=== PATIENT | male | born 1980 | race Caucasian/White ===

== ENCOUNTER 2016-06-03 12:50 | Emergency (ER) | payer OTHER ==
[~2016-06-03] VITALS: Ht 185.4 cm; Wt 145.0 kg
[~2016-06-03 12:50] MED LIST: AMIT10TA6 PO; LEXA20TA PO; LISI10TA3 PO; PROT40TA PO; ZOFR8TAB4 SL
[2016-06-03 12:56] VITALS: BP 133/89; PULSE 104; RESP 20; TEMP 97.8; O2SAT 97
--- NOTE | 2016-06-03 12:59 | PD ---
Physical Exam Time Seen by Provider: 12:57 Narrative Patient presents for injured left third finger 4 days ago at work when door slammed onto his finger. States there is swelling with bruising and throbbing pain at PIP with decreased range of motion. He has been applying ice and taking ibuprofen with minimal improvement of symptoms. Denies any other complaints. VSS. Patient waiting for room assignment. Data Data Last Documented VS Vital Signs Date Time Temp Pulse Resp B/P Pulse Ox O2 Delivery O2 Flow Rate FiO2 06/03/16 12:56 97.8 104 20 133/89 97 Room Air MDM Supervised Visit with KATHARINE: Silvana Juarez Jun 03, 2016 12:59
--- NOTE | 2016-06-03 14:22 | PD ---
HPI Chief Complaint: Injury Time Seen by Provider: 14:22 Travel History International Travel<30 days: No Contact w/Intl Traveler<30days: No Traveled to known affect area: No History of Present Illness HPI 35 year old right handed male presents to the ED for evaluation of L 3rd finger injury sustained four days ago while at work when a door closed into it; jamming the distal aspect. Pt has had a finger splint in place but has been experiencing discomfort, limited mobility, and noticed swelling and bruising develop. Denies any alterations in sensation. No other symptoms to report. PFSH Past Medical History Asthma: Yes Blood Disorders: No Depression: Yes Heart Rhythm Problems: No Cancer: No Cardiac Catheterization: No Cardiovascular Problems: Yes (HTN) High Cholesterol: No Chest Pain: No Congestive Heart Failure: No COPD: No Diabetes: No Diminished Hearing: No Endocrine: No Gastrointestinal Disorders: Yes (GERD) GERD: Yes Genitourinary: No Hepatitis: No Hiatal Hernia: Yes Hypertension: Yes Immune Disorder: No Implanted Vascular Access Dvce: Yes Musculoskeletal: No Neurologic: No Psychiatric: No Reproductive: No Respiratory: Yes (ASTHMA) Immunizations Current: Yes Sleep Apnea: No Past Surgical History Abdominal Surgery: Yes (hernia) Body Medical Devices: UMBILICAL REPAIR-MESH Cardiac Surgery: No Coronary Artery Bypass Graft: No Ear Surgery: No Eye Surgery: No Genitourinary Surgery: No Gynecologic Surgery: No Thoracic Surgery: No Other Surgery: Yes (HERNIA REPAIT) Social History Alcohol Use: Yes (OCC) Tobacco Use: No Substance Use: No Allergies-Medications (Allergen,Severity, Reaction): Coded Allergies: No Known Allergies (Verified , 03/04/16) Reported Meds & Prescriptions Reported Meds & Active Scripts Active Reported Protonix (Pantoprazole Sodium) 40 Mg Tab 40 Mg PO DAILY Lisinopril 10 Mg Tab 10 Mg PO DAILY Amitriptyline (Amitriptyline HCl) 10 Mg Tab 10 Mg PO HS Lexapro (Escitalopram Oxalate) 20 Mg Tab 20 Mg PO DAILY Review of Systems Except as stated in HPI: all other systems reviewed are Neg Physical Exam Narrative GENERAL: Well nourished male pt in no acute distress SKIN: Warm and dry. Ecchymosis along the lateral and medial aspects of the L 3rd digit PIP joint; mild edema. HEAD: Normocephalic. EYES: No scleral icterus. No injection or drainage. NECK: Supple, trachea midline. No JVD or lymphadenopathy. MUSCULOSKELETAL: No cyanosis. Mild edema of the L 3rd digit; limited flexion; pt can fully extend the affected digit. Sensation intact distal affected digit. Data Data Last Documented VS Vital Signs Date Time Temp Pulse Resp B/P Pulse Ox O2 Delivery O2 Flow Rate FiO2 06/03/16 12:56 97.8 104 20 133/89 97 Room Air Orders Finger ([id number]) (06/03/16 13:00) MDM Medical Decision Making Medical Screen Exam Complete: Yes Emergency Medical Condition: Yes Medical Record Reviewed: Yes Differential Diagnosis Contusion versus fracture versus dislocation Narrative Course 35-year-old male presents to emergency room for evaluation a left third digit injury. X-ray imaging is without acute bony abnormality. Patient is placed in his splint for comfort and support. Advised to wear this for additional support and to follow-up with primary care provider. He is instructed to return with any acutely worsening of symptoms. Diagnosis Primary Impression: Jammed interphalangeal joint of finger of left hand Qualified Code: S69.92XA - Jammed interphalangeal joint of finger of left hand , initial encounter Referrals: Primary Care Physician Patient Instructions: General Instructions, Jammed Finger (ED) Additional Instructions: Ice to the affected area Continue to wear brace for support follow-up with your primary care provider Tylenol and/or ibuprofen as directed on package as needed for pain Return immediately with any acute worsening of symptoms Med/Other Pt SpecificInfo: No Change to Meds Disposition: 01 DISCHARGE HOME Condition: Stable Mandy Knapp Jun 03, 2016 14:22
--- NOTE | 2016-06-03 15:00 | RADRPT ---
EXAM DATE/TIME: 06/03/2016 13:44 [facility] COMPARISON: No previous studies available for comparison. INDICATIONS : Pain after getting left 3rd digit caught in door. MEDICAL HISTORY : None. SURGICAL HISTORY : None. ENCOUNTER: Initial ACUITY: 3 days PAIN SCORE: 3/10 LOCATION: Left 3rd digit. FINDINGS: Examination of the third digit of the left hand demonstrates no evidence of fracture or dislocation. No radiopaque foreign bodies are seen. The soft tissues are intact. CONCLUSION: 1. There is no evidence of acute fracture. 8 Pelon Cage MD on June 03, 2016 at 14:58 Board Certified Radiologist. This report was verified electronically.
== END 2016-06-03 15:38 | disposition home or self-care (01) ==
LOC: NEPB 12:50
DX: S69.82XA Other specified injuries of left wrist, hand and finger(s), initial encounter (principal); W23.0XXA Caught, crushed, jammed, or pinched between moving objects, initial encounter
CPT/HCPCS: 73140; 99283

== ENCOUNTER 2016-07-02 14:56 | Emergency (ER) | payer OTHER ==
[~2016-07-02] VITALS: Ht 185.4 cm; Wt 146.1 kg
[~2016-07-02 14:56] MED LIST changes: -ZOFR8TAB4 SL
[2016-07-02 15:09] VITALS: PULSE 110; RESP 18; TEMP 98.1; O2SAT 98
[2016-07-02] MEDS ORDERED: VENTAER INH (15:20)
[2016-07-02] MEDS ORDERED: FLUT1INH INH (15:20)
--- NOTE | 2016-07-02 15:27 | PD ---
HPI Chief Complaint: Back/ Neck Pain or Injury Time Seen by Provider: 15:21 Travel History International Travel<30 days: No Contact w/Intl Traveler<30days: No Traveled to known affect area: No History of Present Illness HPI 35-year-old male that presents to the ED for evaluation of right-sided back pain the wrist on the right leg. Per patient she's had this since this morning. Per patient before he went to work he been down and felt pain in his right back. Per patient she came to work and he needed to work doing some heavy lifting as well and unfortunate the pain got severe to the point that he decided to leave early from work. Per patient he was on his way home when the pain got more severe he realized that he couldn't really use his right foot secondary to the pain so he decided to come here. Per patient the pain is severe 8 out of 10. He does have a history of pain like this in the past. Per patient usually follows with a chiropractor. He states that his been trying to alleviate it at rest but no success. Per patient he was doing some heavy lifting at work today and she believes this also aggravated. He denies any numbness, tingling, weakness. No bowel movement or urinary symptoms. He denies any chest pain or shortness of breath. Per patient the pain starts in the lower back and then moves down the right leg. Per patient she has never had any surgeries to the back. He does have a history of diabetes in the past. No allergies to medication. He has not taken anything for this. PFSH Past Medical History Asthma: Yes Blood Disorders: No Depression: Yes Heart Rhythm Problems: No Cancer: No Cardiac Catheterization: No Cardiovascular Problems: Yes (HTN) High Cholesterol: No Chest Pain: No Congestive Heart Failure: No COPD: No Diabetes: No Diminished Hearing: No Endocrine: No Gastrointestinal Disorders: Yes (GERD) GERD: Yes Genitourinary: No Hepatitis: No Hiatal Hernia: Yes Heparin Induced Thrombocytopen: No Hypertension: Yes Immune Disorder: No Implanted Vascular Access Dvce: Yes Musculoskeletal: No Neurologic: No Psychiatric: No Reproductive: No Respiratory: Yes (ASTHMA) Immunizations Current: Yes Sleep Apnea: No Tetanus Vaccination: Unknown Past Surgical History Abdominal Surgery: Yes (hernia) Body Medical Devices: UMBILICAL REPAIR-MESH Cardiac Surgery: No Coronary Artery Bypass Graft: No Ear Surgery: No Eye Surgery: No Genitourinary Surgery: No Gynecologic Surgery: No Neurologic Surgery: No Thoracic Surgery: No Other Surgery: Yes (HERNIA REPAIT) Family History Family Myocardial Infarction: No Social History Alcohol Use: Yes (OCC) Tobacco Use: No Substance Use: No Allergies-Medications (Allergen,Severity, Reaction): Coded Allergies: No Known Allergies (Verified , 07/02/16) Reported Meds & Prescriptions Reported Meds & Active Scripts Active Lortab (Hydrocodone-Acetaminophen) 5-325 Mg Tab 1 Tab PO Q6H PRN Robaxin (Methocarbamol) 500 Mg Tab 500 Mg PO QID Diclofenac Sodium DR (Diclofenac Sodium) 75 Mg Tabdr 75 Mg PO BID PRN Reported Ventolin Hfa 18 GM Inh (Albuterol Sulfate) 90 Mcg/Act Aer 1 Puff INH Q4H PRN Breo Ellipta Inh (Fluticasone/Vilanterol) 100-25 Mcg/Act Inh 1 Puff INH DAILY Use daily at the same time. Protonix (Pantoprazole Sodium) 40 Mg Tab 40 Mg PO DAILY Lisinopril 10 Mg Tab 10 Mg PO DAILY Amitriptyline (Amitriptyline HCl) 10 Mg Tab 10 Mg PO HS Lexapro (Escitalopram Oxalate) 20 Mg Tab 20 Mg PO DAILY Review of Systems Except as stated in HPI: all other systems reviewed are Neg Physical Exam Narrative GENERAL: SKIN: Warm and dry. HEAD: Atraumatic. Normocephalic. EYES: Pupils equal and round. No scleral icterus. No injection or drainage. ENT: No nasal bleeding or discharge. Mucous membranes pink and moist. Tongue is midline. No uvula deviation. NECK: Trachea midline. No JVD. CARDIOVASCULAR: Regular rate and rhythm. No murmurs, S3, S4. RESPIRATORY: No accessory muscle use. Clear to auscultation. Breath sounds equal bilaterally. GASTROINTESTINAL: Abdomen soft, non-tender, nondistended. Hepatic and splenic margins not palpable. MUSCULOSKELETAL: Extremities without clubbing, cyanosis, or edema. No obvious deformities. Patient has reproducible pain on the lumbar spine noticeable with movement. Bending makes the pain worse. Patient does have some limping. Straight leg test negative bilaterally. 2+ pulses bilaterally in the lower extremities. Neurologically intact in the lower extremities. No thoracic or cervical spine tenderness to palpation. No obvious deformity on the lumbar spine. NEUROLOGICAL: Awake and alert. No obvious cranial nerve deficits. Motor grossly within normal limits. Five out of 5 muscle strength in the arms and legs. Normal speech. PSYCHIATRIC: Appropriate mood and affect; insight and judgment normal. Data Data Last Documented VS Vital Signs Date Time Temp Pulse Resp B/P Pulse Ox O2 Delivery O2 Flow Rate FiO2 07/02/16 15:09 98.1 110 18 98 Orders Ketorolac Inj (Toradol Inj) (07/02/16 15:30) Orphenadrine Inj (Norflex Inj) (07/02/16 15:30) Ct Lumb Spine W/O Contrast (07/02/16 ) Hydromorphone Pf Inj (Dilaudid Pf Inj) (07/02/16 16:30) Ondansetron Inj (Zofran Inj) (07/02/16 16:30) MDM Medical Decision Making Medical Screen Exam Complete: Yes Emergency Medical Condition: Yes Medical Record Reviewed: Yes Interpretation(s) CT of the lumbar spine showed small impinchment at S1 Differential Diagnosis Sciatic Versus muscle strain versus muscle spasm versus herniated disc Narrative Course 35-year-old male that presents to the ED for evaluation of right-sided lower back pain. Patient was properly examined and was found to have signs and symptoms consistent with appears to be muscular skeletal pain. At this time I recommend pain medications and CT scan to rule out any sign of acute disease like herniated disc or compression fracture. The second one appears to be less likely. Patient is agreement with this plan. imaging showed small impingement at the S1 root but no sign of acute disease. Patient was reassessed and still had some discomfort though he does state that he feels that the pain has eased somewhat. Patient will be given 1 more dose of IM pain medication. Pain improved. he is neurovascularly intact. Told of CT results and need for rest and follow up. Patient will contact a ride home. Patient will be sent home with prescriptions for Lortab, diclofenac sodium and Robaxin. Told to use as needed. Ice or warm compresses. Given note for work. See ED worsening symptoms. Follow up with PCP. Diagnosis Primary Impression: Lumbar strain Qualified Code: S39.012A - Lumbar strain, initial encounter Additional Impression: Radiculopathy of lumbar region Patient Instructions: General Instructions Departure Forms: Tests/Procedures, Work Release Enter return to work date: July 05, 2016 Additional Instructions: Take medications as prescribed. Follow-up with PCP. See ED for any worsening symptoms. Do not drink or drive while taking pain medication. Apply ice or heat as needed for pain Med/Other Pt SpecificInfo: Prescription(s) given Scripts Hydrocodone-Acetaminophen (Lortab)5-325 Mg Tab1 Tab PO Q6H PRN (PAIN) #15 TAB Ref 0 Prov:José Norris MD 07/02/16 Methocarbamol (Robaxin)500 Mg [id number] Mg PO QID #20 TAB Ref 0 Prov:José Norris MD 07/02/[address] 75 Mg Tabdr75 Mg PO BID PRN (PAIN SCALE 1 TO 10) #20 TAB Prov:José Norris MD 07/02/16 Disposition: 01 DISCHARGE HOME Condition: Steve Solorio Jul 02, 2016 15:27
[2016-07-02] MEDS ORDERED: ORPHENADRINE INJ 60 MG/2 ML AMP IM ONE (15:30)
[2016-07-02] MEDS ORDERED: KETOROLAC TROMETHAMINE 60 MG/2 ML (IM) VIAL IM ONE (15:30)
[2016-07-02] MEDS ORDERED: HYDR-3533 PO (16:06)
[2016-07-02] MEDS ORDERED: ROBA500T PO (16:06)
[2016-07-02] MEDS ORDERED: DICL75TA PO (16:06)
--- NOTE | 2016-07-02 16:23 | RADHPO ---
EXAM DATE/TIME: 07/02/2016 15:46 [facility] COMPARISON: No previous studies available for comparison. INDICATIONS : Lower back and right leg pain since yesterday. RADIATION DOSE: 40.33 CTDIvol (mGy) MEDICAL HISTORY : None SURGICAL HISTORY : None. ENCOUNTER: Initial ACUITY: 1 day PAIN SCALE: 8/10 LOCATION: Bilateral lower back TECHNIQUE: Volumetric scanning of the lumbar spine was performed. Multiplanar reconstructions in the sagittal, coronal and oblique axial planes were performed. Using automated exposure control and adjustment of the mA and/or kV according to patient size, radiation dose was kept as low as reasonably achievable t o obtain optimal diagnostic quality images. FINDINGS: No evidence of subluxation. No definite fracture is seen for technique. T12-L1: There is no evidence for any significant compromise to the thecal sac, or the exiting nerve roots. N o appreciable thecal sac stenosis is seen. The neural foramina and lateral recess appear patent bila terally. L1-L2: There is no evidence for any significant compromise to the thecal sac, or the exiting nerve roots. N o appreciable thecal sac stenosis is seen. The neural foramina and lateral recess appear patent bila terally. L2-L3: There is no evidence for any significant compromise to the thecal sac, or the exiting nerve roots. N o appreciable thecal sac stenosis is seen. The neural foramina and lateral recess appear patent bila terally. L3-L4: There is no evidence for any significant compromise to the thecal sac, or the exiting nerve roots. N o appreciable thecal sac stenosis is seen. The neural foramina and lateral recess appear patent bila terally. L4-L5: There is no evidence for any significant compromise to the thecal sac, or the exiting nerve roots. N o appreciable thecal sac stenosis is seen. The neural foramina and lateral recess appear patent bila terally. L5-S1: Slight central and towards the right bulging disc and slight protrusion is present slightly impinging the exiting S1 nerve root. No significant thecal sac stenosis is seen. CONCLUSION: Slight impingement on the exiting S1 nerve root on the right at L5-S1 level. Kenneth Ayala MD on July 02, 2016 at 16:18 Board Certified Radiologist. This report was verified electronically.
[2016-07-02] MEDS ORDERED: HYDROmorphone HCL PF 1 MG/ML VIAL IM ONE (16:30)
[2016-07-02] MEDS ORDERED: ONDANSETRON HCL 4 MG/2 ML VIAL IM ONE (16:30)
== END 2016-07-02 17:16 | disposition home or self-care (01) ==
LOC: PHEFT 14:56
DX: S39.012A Strain of muscle, fascia and tendon of lower back, initial encounter (principal); M54.16 Radiculopathy, lumbar region; X50.9XXA Other and unspecified overexertion or strenuous movements or postures, initial encounter
CPT/HCPCS: 72131; 96372; 99283; J1170; J1885; J2360; J2405

== ENCOUNTER 2016-08-14 13:41 | Emergency (ER) | payer OTHER ==
[~2016-08-14] VITALS: Ht 182.9 cm; Wt 144.0 kg
[~2016-08-14 13:41] MED LIST changes: +DICL75TA PO; +FLUT1INH INH; +HYDR-3533 PO; +ROBA500T PO; +VENTAER INH
[2016-08-14 13:46] VITALS: BP 117/79; PULSE 98; RESP 28; TEMP 97.9; O2SAT 97
[2016-08-14 13:57] VITALS: BP 149/96; PULSE 94; RESP 22; TEMP 98.3; O2SAT 100
--- NOTE | 2016-08-14 14:10 | PD ---
HPI Chief Complaint: Respiratory Symptoms Time Seen by Provider: 14:05 Travel History International Travel<30 days: No Contact w/Intl Traveler<30days: No Traveled to known affect area: No History of Present Illness HPI Patient presents with complaints of cough and subjective fever for approximately 2 weeks. He did take some Cipro he had leftover without resolution. Recently diagnosed with asthma. Compliant with duonebs. Denies any nausea vomiting or diarrhea. No new rashes. No tobacco exposure. No sick contacts. PFSH Past Medical History Asthma: Yes Blood Disorders: No Depression: Yes Heart Rhythm Problems: No Cancer: No Cardiac Catheterization: No Cardiovascular Problems: Yes (HTN) High Cholesterol: No Chest Pain: No Congestive Heart Failure: No COPD: No Diabetes: No Diminished Hearing: No Endocrine: No Gastrointestinal Disorders: Yes (GERD) GERD: Yes Genitourinary: No Hepatitis: No Hiatal Hernia: Yes Heparin Induced Thrombocytopen: No Hypertension: Yes Immune Disorder: No Implanted Vascular Access Dvce: Yes Musculoskeletal: No Neurologic: No Psychiatric: No Reproductive: No Respiratory: Yes (ASTHMA) Immunizations Current: Yes Sleep Apnea: No Tetanus Vaccination: Unknown Past Surgical History Abdominal Surgery: Yes (hernia) Body Medical Devices: UMBILICAL REPAIR-MESH Cardiac Surgery: No Coronary Artery Bypass Graft: No Ear Surgery: No Eye Surgery: No Genitourinary Surgery: No Gynecologic Surgery: No Neurologic Surgery: No Thoracic Surgery: No Other Surgery: Yes (HERNIA REPAIT) Family History Family Myocardial Infarction: No Social History Alcohol Use: Yes (OCC) Tobacco Use: No Substance Use: No Allergies-Medications (Allergen,Severity, Reaction): Coded Allergies: No Known Allergies (Verified , 08/14/16) Reported Meds & Prescriptions Reported Meds & Active Scripts Active Lortab (Hydrocodone-Acetaminophen) 5-325 Mg Tab 1 Tab PO Q6H PRN Robaxin (Methocarbamol) 500 Mg Tab 500 Mg PO QID Diclofenac Sodium DR (Diclofenac Sodium) 75 Mg Tabdr 75 Mg PO BID PRN Reported Ventolin Hfa 18 GM Inh (Albuterol Sulfate) 90 Mcg/Act Aer 1 Puff INH Q4H PRN Breo Ellipta Inh (Fluticasone/Vilanterol) 100-25 Mcg/Act Inh 1 Puff INH DAILY Use daily at the same time. Protonix (Pantoprazole Sodium) 40 Mg Tab 40 Mg PO DAILY Lisinopril 10 Mg Tab 10 Mg PO DAILY Amitriptyline (Amitriptyline HCl) 10 Mg Tab 10 Mg PO HS Lexapro (Escitalopram Oxalate) 20 Mg Tab 20 Mg PO DAILY Review of Systems General / Constitutional: No: Fever Eyes: No: Visual changes HENT: No: Headaches Cardiovascular: No: Chest Pain or Discomfort Respiratory: Positive: Cough, Shortness of Breath Gastrointestinal: No: Abdominal Pain Genitourinary: No: Dysuria Musculoskeletal: No: Pain Skin: No Rash Neurologic: No: Weakness Psychiatric: No: Depression Endocrine: No: Polydipsia Hematologic/Lymphatic: No: Easy Bruising Physical Exam Narrative GENERAL: Well-nourished, well-developed patient. SKIN: Focused skin assessment warm/dry. HEAD: Normocephalic. EYES: No scleral icterus. No injection or drainage. NECK: Supple, trachea midline. No JVD or lymphadenopathy. CARDIOVASCULAR: Regular rate and rhythm without murmurs, gallops, or rubs. RESPIRATORY: Coarse bilateral bases no end expiratory wheeze. No accessory muscle use. GASTROINTESTINAL: Abdomen soft, non-tender, nondistended. MUSCULOSKELETAL: No cyanosis, or edema. BACK: Nontender without obvious deformity. No CVA tenderness. Data Data Last Documented VS Vital Signs Date Time Temp Pulse Resp B/P Pulse Ox O2 Delivery O2 Flow Rate FiO2 08/14/16 15:21 94 20 144/59 95 Nasal Cannula 2 08/14/16 13:57 98.3 Orders Complete Blood Count With Diff (08/14/16 14:05) Comprehensive Metabolic Panel (08/14/16 14:05) D-Dimer (08/14/16 14:05) Influenzae A/B Antigen (08/14/16 14:05) Blood Culture (08/14/16 14:05) Iv Access Insert/Monitor (08/14/16 14:05) Ecg Monitoring (08/14/16 14:05) Oximetry (08/14/16 14:05) Oxygen Administration (08/14/16 14:05) Chest, Single Ap (08/14/16 14:05) Sodium Chloride 0.9% Flush (Ns Flush) (08/14/16 14:15) Methylprednisolone So Succ Inj (Solumedr (08/14/16 14:15) Azithromycin Inj (Zithromax Inj) (08/14/16 14:15) Ceftriaxone Inj (Rocephin Inj) (08/14/16 14:15) Lactic Acid Sepsis Protocol (08/14/16 14:16) Labs Laboratory Tests Test 08/14/16 08/14/16 14:05 14:10 White Blood Count 9.2 TH/MM3 Red Blood Count 5.28 MIL/MM3 Hemoglobin 13.8 GM/DL Hematocrit 41.7 % Mean Corpuscular Volume 79.0 FL Mean Corpuscular Hemoglobin 26.2 PG Mean Corpuscular Hemoglobin 33.1 % Concent Red Cell Distribution Width 13.1 % Platelet Count 228 TH/MM3 Mean Platelet Volume 8.2 FL Neutrophils (%) (Auto) 58.3 % Lymphocytes (%) (Auto) 29.0 % Monocytes (%) (Auto) 5.1 % Eosinophils (%) (Auto) 6.0 % Basophils (%) (Auto) 1.6 % Neutrophils # (Auto) 5.3 TH/MM3 Lymphocytes # (Auto) 2.7 TH/MM3 Monocytes # (Auto) 0.5 TH/MM3 Eosinophils # (Auto) 0.6 TH/MM3 Basophils # (Auto) 0.1 TH/MM3 CBC Comment DIFF FINAL Differential Comment D-Dimer Quantitative (PE/DVT) LESS THAN 0.19 MG/L FEU Sodium Level 142 MEQ/L Potassium Level 3.5 MEQ/L Chloride Level 105 MEQ/L Carbon Dioxide Level 28.7 MEQ/L Anion Gap 8 MEQ/L Blood Urea Nitrogen 13 MG/DL Creatinine 1.20 MG/DL Estimat Glomerular Filtration 69 ML/MIN Rate Random Glucose 96 MG/DL Calcium Level 8.3 MG/DL Total Bilirubin 0.6 MG/DL Aspartate Amino Transf 16 U/L (AST/SGOT) Alanine Aminotransferase 25 U/L (ALT/SGPT) Alkaline Phosphatase 75 U/L Total Protein 7.1 GM/DL Albumin 3.6 GM/DL Lactic Acid Level 2.2 mmol/L [facility] Medical Decision Making Medical Screen Exam Complete: Yes Emergency Medical Condition: Yes Differential Diagnosis Pneumonia, bronchitis, pneumonitis, pharyngitis, influenza Narrative Course Last 72 hours Impressions Chest X-Ray 08/14/16 [id number] Signed Impressions: Service Date/Time: Sunday, August 14, 2016 14:14 - CONCLUSION: No evidence of acute cardiopulmonary disease. Sebastian Romero MD Assessment and plan discussed with patient and at bedside. Diagnosis Primary Impression: Asthma exacerbation Additional Impression: Cough Patient Instructions: General Instructions Additional Instructions: Rest fluids and Motrin, antibiotic and cough suppressant as prescribed. Follow- up with PCP. Return to emergency with any new onset of symptoms. Continue DuoNeb's Med/Other Pt SpecificInfo: Prescription(s) given Scripts Prednisolone 5 mg Dose Pack (21 tabs) (Millipred 5 mg Dose Pack (21 tabs))5 Mg Pak10 Mg PO DAILY #20 TAB Prov:Cristo Lanier MD 08/14/16 Guaifenesin-Codeine Liq (Cheratussin AC Liq)100-10 Mg/5 Ml Syrp10 Ml PO Q4H PRN (COUGH AND COLD SYMPTOMS) #120 ML Ref 0 Do not exceed 6 doses/24 hrs. Prov:Cristo Lanier MD 08/14/16 Doxycycline Hyclate 100 Mg [id number] Mg PO BID #20 CAP Ref 0 Prov:Cristo Lanier MD 08/14/16 Disposition: 01 DISCHARGE HOME Condition: Good Cristo Lanier MD Aug 14, 2016 14:10
[2016-08-14] MEDS ORDERED: AZITHROMYCIN INJ 500 MG in SODIUM CHLOR 0.9% 250 ML INJ 250 ML IV ONE (14:15)
[2016-08-14] MEDS ORDERED: SODIUM CHLORIDE 0.9% FLUSH 10 ML FLUSH IVF PRN (14:15)
[2016-08-14] MEDS ORDERED: cefTRIAXone INJ 1,000 MG in SODIUM CHLORIDE 0.9% INJ 100 ML IV ONE (14:15)
[2016-08-14] MEDS ORDERED: methylPREDNISolone SOD SUCC 125 MG/2 ML VIAL IVP ONE (14:15)
[2016-08-14 14:18] VITALS: RESP 22; O2SAT 100
--- NOTE | 2016-08-14 14:23 | RADHPO ---
EXAM DATE/TIME: 08/14/2016 14:14 [facility] COMPARISON: CHEST SINGLE AP, May 05, 2015, 9:13. INDICATIONS : Short of breath, cough MEDICAL HISTORY : None. SURGICAL HISTORY : None. ENCOUNTER: Initial ACUITY: 2 weeks PAIN SCORE: 0/10 LOCATION: Bilateral chest FINDINGS: A single view of the chest demonstrates the lungs to be symmetrically aerated without evidence of mas s, infiltrate or effusion. The cardiomediastinal contours are unremarkable. Osseous structures are intact. CONCLUSION: No evidence of acute cardiopulmonary disease. Sebastian Romero MD on August 14, 2016 at 14:21 Board Certified Radiologist. This report was verified electronically.
[2016-08-14 14:31] LABS: CHLORIDE 105 MEQ/L (98-107); POTASSIUM 3.5 MEQ/L (3.5-5.1); SODIUM (NA) 142 MEQ/L (136-145)
[2016-08-14 14:33] LABS: AUTOMATED NEUTROPHIL # 5.3 TH/MM3 (1.8-7.7); BASOPHIL # 0.1 TH/MM3 (0-0.2); BASOPHIL % 1.6 % (0.0-2.0); EOSINOPHIL # 0.6 TH/MM3 (0-0.4); HEMATOCRIT 41.7 % (39.0-51.0); HEMO FLAGS DIFF FINAL; LYMPHOCYTE # 2.7 TH/MM3 (1.0-4.8); MEAN CORPUSCULAR HEMOGLOBIN 26.2 PG (27.0-34.0); MEAN CORPUSCULAR HGB CONC 33.1 % (32.0-36.0); MONO % 5.1 % (0.0-8.0); NEUT % 58.3 % (16.0-70.0); PLATELET COUNT 228 TH/MM3 (150-450); RED BLOOD COUNT 5.28 MIL/MM3 (4.50-5.90); RED CELL DISTRIBUTION WIDTH 13.1 % (11.6-17.2); WHITE BLOOD COUNT 9.2 TH/MM3 (4.0-11.0)
[2016-08-14 14:36] LABS: ANION GAP 8 MEQ/L (5-15); BICARBONATE 28.7 MEQ/L (21.0-32.0); BLOOD UREA NITROGEN 13 MG/DL (7-18)
[2016-08-14 14:52] LABS: AST (GOT) 16 U/L (15-37)
[2016-08-14 14:53] LABS: ALT (GPT) 25 U/L (12-78); GLOMERULAR FILTRATION RATE 69 ML/MIN (>89)
[2016-08-14 14:54] LABS: TOTAL BILIRUBIN ADULT 0.6 MG/DL (0.2-1.0)
[2016-08-14 14:55] LABS: ALKALINE PHOSPHATASE 75 U/L (45-117)
[2016-08-14 15:21] VITALS: BP 144/59; PULSE 94; RESP 20; O2SAT 95
[2016-08-14] MEDS ORDERED: DOXY100C PO (15:40)
[2016-08-14] MEDS ORDERED: MILL5PAK PO (15:40)
[2016-08-14] MEDS ORDERED: CHERSYP2 PO (15:40)
[2016-08-14] MEDS ORDERED: ZOFR4TAB PO (15:49)
[2016-08-14] MEDS ORDERED: ONDANSETRON HCL 4 MG/2 ML VIAL IV PUSH ONE (16:00)
[2016-08-14 16:23] LABS: LACTIC ACID GHOST NOT REPORTABLE
[2016-08-14 16:31] VITALS: BP 103/69
== END 2016-08-14 16:42 | disposition home or self-care (01) ==
LOC: PHED 13:41
DX: J45.901 Unspecified asthma with (acute) exacerbation (principal); R05 Cough; I10 Essential (primary) hypertension; K21.9 Gastro-esophageal reflux disease without esophagitis; R06.02 Shortness of breath; R11.0 Nausea
CPT/HCPCS: 71010; 80053; 83605; 85025; 85379; 87040; 87804; 96365; 96367; 96375; 99284; J0456; J0696; J2405; J2930; J7050

== ENCOUNTER → 2016-08-31 | Day surgery (SDC) | payer OTHER ==
[~2016-08-31] MED LIST changes: +BUPIVACAINE HCL PF 0.5% 10 ML VIAL ONE; +CHERSYP2 PO; +DOXY100C PO; +GENTAMICIN SULFATE 80 MG/2 ML VIAL ONE; +LACTATED RINGER'S 1000 ML INJ 1,000 ML ONE; +LIDOCAINE HCL 1% 50 ML VIAL ONE; +MIDAZOLAM HCL 2 MG/2 ML VIAL ONE; +MILL5PAK PO; +NEOMYCIN/POLYMYXIN/BACITRACIN OINT 15 GM TUBE ONE; +ONDANSETRON HCL 4 MG/2 ML VIAL IV PUSH ONE; +PROPOFOL 200 MG/20 ML AMP IV ONE; +ZOFR4TAB PO
--- NOTE | 2016-08-31 09:31 | TN ---
cc: IRON PAIZ M.D. DATE OF SURGERY 08/31/2016 PREOPERATIVE DIAGNOSIS Desired contraception (ICD-10 code Z30.0) POSTOPERATIVE DIAGNOSIS Desired contraception (ICD-10 code Z30.0) PROCEDURE Bilateral partial vasectomy (CPT code 19343). INDICATION Mr. Gorman is a 36-year-old gentleman. He has two children and no longer desires further children. He is requesting surgical sterilization via bilateral vasectomy. FINDINGS Testicles descended bilaterally without mass or tenderness. No inguinal hernias or lymphadenopathy. The vas are palpable, but difficult to palpate bilaterally. PROCEDURE NOTE The procedure, as well as the risks and benefits were explained to the patient. Informed consent was obtained. The patient was taken to the major operative theater, placed in the supine position. The patient was identified, as well as the operative site. A universal time-out was performed in standard fashion. At this time, total intravenous anesthesia was administered. After adequate anesthetic, he was placed in the low dorsolithotomy position, prepped and draped in the usual sterile fashion. At this time, the right vas was grasped between the thumb and forefinger and 1% lidocaine and 0.25% Marcaine without epinephrine was injected. At this time, an 11 blade scalpel was used to make a small incision in the midline in the median raphe over the area where the right vas had been grasped with ring forceps and then the sheath was dissected out. The vas was from the sheath and median titanium clips were then applied to both sides and a small portion of the vas was resected and the lumen of the vas was then cauterized on both sides with pinpoint cautery. After confirming hemostasis, the right vas was then placed back into the scrotum and the same procedure was performed on the left side. The left vas was grasped with the forefinger and thumb and then 1% lidocaine without epinephrine was placed and the ring forceps was able to grasp it through the previously made incision in the midline and then it was dissected from the sheath, clipped, resected and the lumen again fulgurated on each side and again hemostasis was confirmed and the vas was dropped back into the scrotum. The single midline small incision was opposed using Allis clips and then Dermabond and Polysporin ointment. The patient tolerated the procedure well, emerged from anesthetic without difficulty and transferred to the recovery room in stable condition to be discharged home when criteria is met. There were no obvious complications. MD HIREN Azul/LIGIA /8:40 AM /9:25 AM
== END | disposition home or self-care (01) ==
LOC: ESDC 06:24
PROVIDERS: ATTEND Urology
DX: Z30.2 Encounter for sterilization (principal)
CPT/HCPCS: 00921; 55250; J2250; J2405; J3010; J7120; J1580

== ENCOUNTER → 2016-11-24 | Outpatient (CLI) | payer OTHER ==
[~2016-11-24] MED LIST changes: -BUPIVACAINE HCL PF 0.5% 10 ML VIAL ONE; -GENTAMICIN SULFATE 80 MG/2 ML VIAL ONE; -LACTATED RINGER'S 1000 ML INJ 1,000 ML ONE; -LIDOCAINE HCL 1% 50 ML VIAL ONE; -MIDAZOLAM HCL 2 MG/2 ML VIAL ONE; -NEOMYCIN/POLYMYXIN/BACITRACIN OINT 15 GM TUBE ONE; -ONDANSETRON HCL 4 MG/2 ML VIAL IV PUSH ONE; -PROPOFOL 200 MG/20 ML AMP IV ONE
[2016-11-24 07:32] LABS: AUTOMATED NEUTROPHIL # 3.9 TH/MM3 (1.8-7.7); BASOPHIL % 0.7 % (0.0-2.0); EOSINOPHIL # 0.3 TH/MM3 (0-0.4); EOSINOPHIL % 3.9 % (0.0-4.0); HEMATOCRIT 44.3 % (39.0-51.0); HEMO FLAGS DIFF FINAL; LYMPH % 29.8 % (9.0-44.0); MEAN CELL VOLUME 80.2 FL (80.0-100.0); MEAN CORPUSCULAR HEMOGLOBIN 26.4 PG (27.0-34.0); MEAN CORPUSCULAR HGB CONC 32.9 % (32.0-36.0); MONO % 7.5 % (0.0-8.0); NEUT % 58.1 % (16.0-70.0); PLATELET COUNT 218 TH/MM3 (150-450); RED BLOOD COUNT 5.53 MIL/MM3 (4.50-5.90); RED CELL DISTRIBUTION WIDTH 13.6 % (11.6-17.2); WHITE BLOOD COUNT 6.6 TH/MM3 (4.0-11.0)
[2016-11-24 08:01] LABS: ALT (GPT) 31 U/L (12-78); ANION GAP 7 MEQ/L (5-15); AST (GOT) 18 U/L (15-37); BICARBONATE 26.2 MEQ/L (21.0-32.0); BLOOD UREA NITROGEN 14 MG/DL (7-18); CHLORIDE 103 MEQ/L (98-107); GLOMERULAR FILTRATION RATE 64 ML/MIN (>89); GLUCOSE,FASTING 87 MG/DL (74-99); POTASSIUM 4.8 MEQ/L (3.5-5.1); SODIUM (NA) 136 MEQ/L (136-145)
[2016-11-24 08:07] LABS: RHEUMATOID FACTOR TRIGGER LESS THAN 10.0 IU/ML (0.0-14.9)
[2016-11-24 08:09] LABS: ALKALINE PHOSPHATASE 78 U/L (45-117); FREE T4 0.97 NG/DL (0.76-1.46); HDL CHOLESTEROL 38.5 MG/DL (40.0-60.0); LDL CHOLESTEROL 125 MG/DL (0-99); TOTAL BILIRUBIN ADULT 0.6 MG/DL (0.2-1.0)
[2016-11-24 08:10] LABS: WESTERGREN SEDIMENTATION RATE 7 mm/hr (0-15)
[2016-11-25 23:54] LABS: THYROGLOB ABS LESS THAN 1 IU/mL (< OR = 1)
== END ==
LOC: CLAB 06:45
PROVIDERS: ATTEND Internal Medicine
DX: M25.521 Pain in right elbow (principal); M25.541 Pain in joints of right hand; I10 Essential (primary) hypertension; Z13.29 Encounter for screening for other suspected endocrine disorder
CPT/HCPCS: 36415; 80053; 80061; 84439; 84443; 85025; 85652; 86038; 86140; 86376; 86430; 86800

== ENCOUNTER 2017-03-08 08:23 | Emergency (ER) | payer OTHER ==
[~2017-03-08] VITALS: Ht 182.9 cm; Wt 140.0 kg
[2017-03-08 08:25] VITALS: BP 170/108; PULSE 111; RESP 20; TEMP 98.8; O2SAT 100
--- NOTE | 2017-03-08 08:49 | PD ---
HPI Chief Complaint: Back/ Neck Pain or Injury Time Seen by Provider: 08:46 Travel History International Travel<30 days: No Contact w/Intl Traveler<30days: No Traveled to known affect area: No History of Present Illness HPI 36-year-old male presents the emergency department status post injury at work. 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 Patient states the pain is 8 out of 10 and spasming. He states it does not really radiate into the lower extremities at this time. It is worse with movement. He has difficulty ambulating secondary to pain. He denies numbness or tingling or weakness in the lower extremities. Patient has no known drug allergies. PFSH Past Medical History Asthma: Yes Blood Disorders: No Depression: Yes Heart Rhythm Problems: No Cancer: No Cardiac Catheterization: No Cardiovascular Problems: Yes (HTN) High Cholesterol: No Chest Pain: No Congestive Heart Failure: No COPD: No Diabetes: No Diminished Hearing: No Endocrine: No Gastrointestinal Disorders: Yes (GERD) GERD: Yes Genitourinary: No Hepatitis: No Hiatal Hernia: Yes Heparin Induced Thrombocytopen: No Hypertension: Yes Immune Disorder: No Implanted Vascular Access Dvce: Yes Musculoskeletal: No Neurologic: No Psychiatric: No Reproductive: No Respiratory: Yes (ASTHMA) Immunizations Current: Yes Sleep Apnea: No Past Surgical History Abdominal Surgery: Yes (hernia) Body Medical Devices: UMBILICAL REPAIR-MESH Cardiac Surgery: No Coronary Artery Bypass Graft: No Ear Surgery: No Eye Surgery: No Genitourinary Surgery: No Gynecologic Surgery: No Neurologic Surgery: No Thoracic Surgery: No Other Surgery: Yes (HERNIA REPAIT) Social History Alcohol Use: Yes (OCC) Tobacco Use: No Substance Use: No Allergies-Medications (Allergen,Severity, Reaction): Coded Allergies: No Known Allergies (Verified Adverse Reaction, Unknown, 03/08/17) Reported Meds & Prescriptions Reported Meds & Active Scripts Active Reported Lisinopril 10 Mg Tab 10 Mg PO DAILY Review of Systems Except as stated in HPI: all other systems reviewed are Neg General / Constitutional: No: Fever Eyes: No: Visual changes HENT: No: Headaches Cardiovascular: No: Chest Pain or Discomfort Respiratory: No: Shortness of Breath Gastrointestinal: No: Abdominal Pain Genitourinary: No: Dysuria Musculoskeletal: Positive: Myalgias, Limited ROM, Pain (see history of present illness) Skin: No Rash Neurologic: No: Weakness Psychiatric: No: Depression Endocrine: No: Polydipsia Hematologic/Lymphatic: No: Easy Bruising Physical Exam Narrative GENERAL: Patient appears in mild to moderate distress. SKIN: Warm and dry. Normal color. Normal turgor. No rash. HEAD: Atraumatic. Normocephalic. EYES: Pupils equal and round. No scleral icterus. No injection or drainage. ENT: No nasal bleeding or discharge. Mucous membranes pink and moist. NECK: Trachea midline. No JVD. CARDIOVASCULAR: Regular rate and rhythm. RESPIRATORY: No accessory muscle use. Clear to auscultation. Breath sounds equal bilaterally. MUSCULOSKELETAL: Extremities without clubbing, cyanosis, or edema. No obvious deformities. Patient has pain with palpation along the lower lumbar strain bilaterally without specific bony tenderness. Straight leg raise pain is not able to be evaluated secondary to patient's discomfort. No obvious weakness is noted in the lower extremities. Neurovascular exam is normal. NEUROLOGICAL: Awake and alert. No obvious cranial nerve deficits. Motor grossly within normal limits. Five out of 5 muscle strength in the arms and legs. Normal speech. PSYCHIATRIC: Appropriate mood and affect; insight and judgment normal. Data Data Last Documented VS Vital Signs Date Time Temp Pulse Resp B/P (MAP) Pulse Ox O2 Delivery O2 Flow Rate FiO2 03/08/17 08:25 98.8 111 20 170/108 (128) 100 Room Air Orders Orders Ketorolac Inj (Toradol Inj) (03/08/17 09:00) Prednisone (Deltasone) (03/08/17 09:00) Spine, Lumbar Comp W/Obliq (03/08/17 09:03) [facility] Medical Decision Making Medical Screen Exam Complete: Yes Emergency Medical Condition: Yes Medical Record Reviewed: Yes Differential Diagnosis Lumbar strain. Lumbago. Sciatica. Workplace injury. Narrative Course Patient is medically stable at time of exam. Patient is given Toradol 60 mg IM as well as 40 mg prednisone by mouth. X-rays of the lower lumbar spine are obtained. X-rays show degenerative changes MRI was recommended patient was unable to ambulate. Patient is reassessed and found to be able to sit, stand, and ambulate with pain. Patient felt to be stable for discharge. Patient will be continued on prednisone 20 mg twice a day 7 days. Patient given Flexeril 10 mg up to 3 times a day #15. Patient also given tramadol 50 mg one every 6 hours when necessary pain #20. Patient is to follow-up with employee med next week before returning to work. Patient should return the emergency Department with worsening symptoms as needed as discussed. Diagnosis Primary Impression: Work related injury Additional Impressions: Lumbar strain Qualified Codes: S39.012A - Strain of muscle, fascia and tendon of lower back , initial encounter Radiculopathy of lumbar region Patient Instructions: Acute Low Back Pain (ED), General Instructions, Low Back Strain (ED) Additional Instructions: X-rays show degenerative changes MRI was recommended patient was unable to ambulate. Patient is reassessed and found to be able to sit, stand, and ambulate with pain. Patient felt to be stable for discharge. Patient will be continued on prednisone 20 mg twice a day 7 days. Patient given Flexeril 10 mg up to 3 times a day #15. Patient also given tramadol 50 mg one every 6 hours when necessary pain #20. Patient is to follow-up with employee med next week before returning to work. Patient should return the emergency Department with worsening symptoms as needed as discussed. Scripts Tramadol (Tramadol) 50 Mg Tab 50 MG PO Q6H Y for PAIN, #20 TAB 0 Refills Prov: Hector Woods MD 03/08/17 Cyclobenzaprine (Flexeril) 10 Mg Tab 10 MG PO TID for Muscle Spasm, #15 TAB 0 Refills Prov: Hector Woods MD 03/08/17 Prednisone (Prednisone) 20 Mg Tab 20 MG PO BID for 7 Days, #14 TAB 0 Refills Prov: Hector Woods MD 03/08/17 Disposition: 01 DISCHARGE HOME Condition: Stable Garrett Couch Mar 08, 2017 08:49
[2017-03-08] MEDS ORDERED: KETOROLAC TROMETHAMINE 60 MG/2 ML (IM) VIAL IM ONE (09:00)
[2017-03-08] MEDS ORDERED: predniSONE 20 MG TAB PO ONE (09:00)
--- NOTE | 2017-03-08 09:52 | RADRPT ---
EXAM DATE/TIME: 03/08/2017 09:31 [facility] COMPARISON: No previous studies available for comparison. INDICATIONS : Lower back pain after picking up a box and twisting it wrong. MEDICAL HISTORY : Hypertension. Gastroesophageal reflux disease. Asthma. Anxiety. SURGICAL HISTORY : Inguinal hernia repair. Umbilical hernia repair. ENCOUNTER: Initial ACUITY: 1 day PAIN SCORE: 10/10 LOCATION: lumbar FINDINGS: Minimal lossright L5-S1. Mild degenerative changes facets posteriorly at same level. Upper lumbar spine unremarkable. CONCLUSION: Mild degenerative disease L5-S1. MRI would be of benefit for radicular symptoms CT scan had shown degenerative changes L5-S1... Elvis Sánchez MD FACR on March 08, 2017 at 9:49 Board Certified Radiologist. This report was verified electronically.
[2017-03-08] MEDS ORDERED: TRAM50TA PO (10:22)
[2017-03-08] MEDS ORDERED: PRED20 PO (10:22)
[2017-03-08] MEDS ORDERED: CYCL10TA PO (10:22)
== END 2017-03-08 10:46 | disposition home or self-care (01) ==
LOC: NEPD 08:23
DX: S39.012A Strain of muscle, fascia and tendon of lower back, initial encounter (principal); Y99.0 Civilian activity done for income or pay; M54.16 Radiculopathy, lumbar region; J45.909 Unspecified asthma, uncomplicated; I10 Essential (primary) hypertension; F41.9 Anxiety disorder, unspecified; F32.9 Major depressive disorder, single episode, unspecified; K21.9 Gastro-esophageal reflux disease without esophagitis
CPT/HCPCS: 72110; 96372; 99284; J1885; J7512

== ENCOUNTER 2017-06-27 08:31 | Emergency (ER) | payer OTHER ==
[~2017-06-27] VITALS: Ht 182.9 cm; Wt 142.0 kg
[~2017-06-27 08:31] MED LIST changes: -AMIT10TA6 PO; -CHERSYP2 PO; +CYCL10TA PO; -DICL75TA PO; -DOXY100C PO; -FLUT1INH INH; -HYDR-3533 PO; -LEXA20TA PO; -MILL5PAK PO; +PRED20 PO; -PROT40TA PO; -ROBA500T PO; +TRAM50TA PO; -VENTAER INH; -ZOFR4TAB PO
[2017-06-27 08:33] VITALS: BP 123/87; PULSE 98; RESP 20; TEMP 98.5; O2SAT 100
[2017-06-27] MEDS ORDERED: PROT40TA PO (08:49)
[2017-06-27] MEDS ORDERED: ESCI20TA PO (08:49)
--- NOTE | 2017-06-27 09:26 | PD ---
HPI Chief Complaint: GI Complaint Time Seen by Provider: 09:22 Travel History International Travel<30 days: No Contact w/Intl Traveler<30days: No Traveled to known affect area: No History of Present Illness HPI This 36-year-old male is complaining of abdominal pain and vomiting. Having abdominal pain off and on for some time. He had a CT scan with his primary care doctor couple of weeks ago and was diagnosed as having diverticulitis. He was put on Cipro and Flagyl. He has been having some residual pain. Yesterday around 1:00 he started vomiting and has had ongoing vomiting since then. He has a history of a hernia repair. He is having abdominal pain. The pain is in the epigastric area and also in the left lower quadrant. He does take Protonix and lisinopril. He is seen Dr. Monte in the past and had a colonoscopy and an upper endoscopy. PFSH Past Medical History Asthma: Yes Blood Disorders: No Depression: Yes Heart Rhythm Problems: No Cancer: No Cardiac Catheterization: No Cardiovascular Problems: Yes (HTN) High Cholesterol: No Chest Pain: No Congestive Heart Failure: No COPD: No Diabetes: No Diminished Hearing: No Endocrine: No Gastrointestinal Disorders: Yes (GERD) GERD: Yes Genitourinary: No Hepatitis: No Hiatal Hernia: Yes Heparin Induced Thrombocytopen: No Hypertension: Yes Immune Disorder: No Implanted Vascular Access Dvce: Yes Musculoskeletal: No Neurologic: No Psychiatric: No Reproductive: No Respiratory: Yes (ASTHMA) Immunizations Current: Yes Sleep Apnea: No Tetanus Vaccination: Unknown Past Surgical History Abdominal Surgery: Yes (hernia x3) Body Medical Devices: UMBILICAL REPAIR-MESH Cardiac Surgery: No Coronary Artery Bypass Graft: No Ear Surgery: No Eye Surgery: No Genitourinary Surgery: No Gynecologic Surgery: No Neurologic Surgery: No Thoracic Surgery: No Other Surgery: Yes (HERNIA REPAIT , VASECTOMY) Family History Family Myocardial Infarction: No Social History Alcohol Use: Yes (OCC) Tobacco Use: No Substance Use: No Allergies-Medications (Allergen,Severity, Reaction): Coded Allergies: No Known Allergies (Verified Adverse Reaction, Unknown, 06/27/17) Reported Meds & Prescriptions Reported Meds & Active Scripts Active Reported Escitalopram (Escitalopram Oxalate) 20 Mg Tab 20 Mg PO DAILY Protonix (Pantoprazole Sodium) 40 Mg Tab 40 Mg PO DAILY Lisinopril 10 Mg Tab 10 Mg PO DAILY Review of Systems General / Constitutional: No: Fever, Chills Eyes: No: Diploplia, Blurred Vision HENT: No: Headaches, Vertigo Cardiovascular: No: Chest Pain or Discomfort, Palpitations Respiratory: No: Cough, Shortness of Breath Gastrointestinal: Positive: Vomiting, Abdominal Pain Genitourinary: No: Urgency, Frequency Musculoskeletal: No: Myalgias Skin: No Rash, No Itching Neurologic: No: Weakness Hematologic/Lymphatic: No: Easy Bruising Physical Exam Narrative GENERAL: Well-developed male SKIN: Focused skin assessment warm/dry. HEAD: Atraumatic. Normocephalic. EYES: Pupils equal and round. No scleral icterus. No injection or drainage. ENT: No nasal bleeding or discharge. Mucous membranes pink and moist. NECK: Trachea midline. No JVD. CARDIOVASCULAR: Regular rate and rhythm. No murmur appreciated. RESPIRATORY: No accessory muscle use. Clear to auscultation. Breath sounds equal bilaterally. GASTROINTESTINAL: Abdomen soft, there is some mid abdominal tenderness without guarding or rigidity, nondistended. Hepatic and splenic margins not palpable. MUSCULOSKELETAL: No obvious deformities. No clubbing. No cyanosis. No edema. NEUROLOGICAL: Awake and alert. No obvious cranial nerve deficits. Motor grossly within normal limits. Normal speech. PSYCHIATRIC: Appropriate mood and affect; insight and judgment normal. Data Data Last Documented VS Vital Signs Date Time Temp Pulse Resp B/P (MAP) Pulse Ox O2 Delivery O2 Flow Rate FiO2 06/27/17 11:05 85 16 145/83 (103) 100 Room Air 06/27/17 08:33 98.5 Orders Orders Urinalysis - C+S If Indicated (06/27/17 08:33) Complete Blood Count With Diff (06/27/17 09:22) Comprehensive Metabolic Panel (06/27/17 09:22) Lipase (06/27/17 09:22) Ct Abd/Pel W Iv Contrast(Rout) (06/27/17 09:22) Iv Access Insert/Monitor (06/27/17 09:22) Ecg Monitoring (06/27/17 09:22) Oximetry (06/27/17 09:22) Hydromorphone Pf Inj (Dilaudid Pf Inj) (06/27/17 09:30) Ondansetron Inj (Zofran Inj) (06/27/17 09:30) Sodium Chloride 0.9% Flush (Ns Flush) (06/27/17 09:30) Sodium Chlor 0.9% 1000 Ml Inj (Ns 1000 M (06/27/17 09:30) Sodium Chlor 0.9% 1000 Ml Inj (Ns 1000 M (06/27/17 09:30) Iohexol 350 Inj (Omnipaque 350 Inj) (06/27/17 10:48) Labs Laboratory Tests Test 06/27/17 09:10 White Blood Count 10.5 TH/MM3 Red Blood Count 5.89 MIL/MM3 Hemoglobin 15.9 GM/DL Hematocrit 46.2 % Mean Corpuscular Volume 78.5 FL Mean Corpuscular Hemoglobin 27.1 PG Mean Corpuscular Hemoglobin Concent 34.5 % Red Cell Distribution Width 12.8 % Platelet Count 236 TH/MM3 Mean Platelet Volume 8.7 FL Neutrophils (%) (Auto) 72.6 % Lymphocytes (%) (Auto) 18.1 % Monocytes (%) (Auto) 5.8 % Eosinophils (%) (Auto) 3.3 % Basophils (%) (Auto) 0.2 % Neutrophils # (Auto) 7.7 TH/MM3 Lymphocytes # (Auto) 1.9 TH/MM3 Monocytes # (Auto) 0.6 TH/MM3 Eosinophils # (Auto) 0.3 TH/MM3 Basophils # (Auto) 0.0 TH/MM3 CBC Comment DIFF FINAL Differential Comment Blood Urea Nitrogen 13 MG/DL Creatinine 1.10 MG/DL Random Glucose 87 MG/DL Total Protein 7.7 GM/DL Albumin 3.6 GM/DL Calcium Level 8.9 MG/DL Alkaline Phosphatase 84 U/L Aspartate Amino Transf (AST/SGOT) 19 U/L Alanine Aminotransferase (ALT/SGPT) 22 U/L Total Bilirubin 0.9 MG/DL Sodium Level 136 MEQ/L Potassium Level 3.9 MEQ/L Chloride Level 104 MEQ/L Carbon Dioxide Level 25.2 MEQ/L Anion Gap 7 MEQ/L Estimat Glomerular Filtration Rate 75 ML/MIN Lipase 164 U/L MDM Medical Decision Making Medical Screen Exam Complete: Yes Emergency Medical Condition: Yes Medical Record Reviewed: Yes Differential Diagnosis Differential includes gastroenteritis, diverticulitis, nonspecific abdominal pain, food poisoning Narrative Course Patient been vomiting throughout the night. He had not eaten since noon nobody else at home is been sick. A CT scan was obtained. There is mild splenomegaly , colonic diverticulosis without diverticulitis, normal appendix, small hiatal hernia. Patient has been given IV fluids and Zofran with some improvement. He has some residual discomfort and nausea. I will repeat the medication. He is stable for discharge. Impression acute vomiting Diagnosis Primary Impression: Acute vomiting Scripts Tramadol (Tramadol) 50 Mg Tab 50 MG PO Q4H Y for PAIN, #12 TAB 0 Refills Prov: Arsenio Barone MD 06/27/17 Ondansetron Odt (Zofran Odt) 4 Mg Tab 4 MG SL Q6HR Y for Nausea/Vomiting, #10 TAB 0 Refills Prov: Arsenio Barone MD 06/27/17 Disposition: DISCHARGE HOME Condition: Stable Arsenio Barone MD Jun 27, 2017 09:26
[2017-06-27] MEDS ORDERED: HYDROmorphone HCL PF 2 MG/ML VIAL IVS ONE (09:30)
[2017-06-27] MEDS ORDERED: ONDANSETRON HCL 4 MG/2 ML VIAL IVP ONE (09:30)
[2017-06-27] MEDS ORDERED: SODIUM CHLOR 0.9% 1000 ML INJ 1,000 ML IV ONE ×2 (09:30)
[2017-06-27] MEDS ORDERED: SODIUM CHLORIDE 0.9% FLUSH 10 ML FLUSH IV FLUSH PRN (09:30)
[2017-06-27 09:40] VITALS: O2SAT 97
[2017-06-27 09:44] VITALS: BP 125/79; PULSE 87; RESP 16; O2SAT 100
[2017-06-27 09:44] LABS: AUTOMATED NEUTROPHIL # 7.7 TH/MM3 (1.8-7.7); BASOPHIL % 0.2 % (0.0-2.0); EOSINOPHIL # 0.3 TH/MM3 (0-0.4); EOSINOPHIL % 3.3 % (0.0-4.0); HEMATOCRIT 46.2 % (39.0-51.0); HEMOGLOBIN 15.9 GM/DL (13.0-17.0); LYMPH % 18.1 % (9.0-44.0); LYMPHOCYTE # 1.9 TH/MM3 (1.0-4.8); MEAN CELL VOLUME 78.5 FL (80.0-100.0); MEAN CORPUSCULAR HEMOGLOBIN 27.1 PG (27.0-34.0); MEAN CORPUSCULAR HGB CONC 34.5 % (32.0-36.0); MEAN PLATELET VOLUME 8.7 FL (7.0-11.0); MONO % 5.8 % (0.0-8.0); MONOCYTE # 0.6 TH/MM3 (0-0.9); NEUT % 72.6 % (16.0-70.0); PLATELET COUNT 236 TH/MM3 (150-450); RED BLOOD COUNT 5.89 MIL/MM3 (4.50-5.90); RED CELL DISTRIBUTION WIDTH 12.8 % (11.6-17.2); WHITE BLOOD COUNT 10.5 TH/MM3 (4.0-11.0)
[2017-06-27 10:04] LABS: CHLORIDE 104 MEQ/L (98-107); SODIUM (NA) 136 MEQ/L (136-145)
[2017-06-27 10:07] LABS: ALBUMIN 3.6 GM/DL (3.4-5.0); BICARBONATE 25.2 MEQ/L (21.0-32.0); CALCIUM 8.9 MG/DL (8.5-10.1)
[2017-06-27 10:08] LABS: BLOOD UREA NITROGEN 13 MG/DL (7-18); GLUCOSE,RANDOM 87 MG/DL (74-106)
[2017-06-27 10:10] LABS: ALT (GPT) 22 U/L (12-78); AST (GOT) 19 U/L (15-37); GLOMERULAR FILTRATION RATE 75 ML/MIN (>89)
[2017-06-27 10:12] LABS: TOTAL BILIRUBIN ADULT 0.9 MG/DL (0.2-1.0); TOTAL PROTEIN 7.7 GM/DL (6.4-8.2)
[2017-06-27 10:13] LABS: ALKALINE PHOSPHATASE 84 U/L (45-117)
[2017-06-27] MEDS ORDERED: methylPREDNISolone SOD SUCC 125 MG/2 ML VIAL IV PUSH ONE (10:45)
[2017-06-27] MEDS ORDERED: diphenhydrAMINE HCL 50 MG/ML VIAL IV PUSH ONE (10:45)
[2017-06-27] MEDS ORDERED: IOHEXOL 350 MG/ML 10 ML VIAL (for RAD DIAG) IVCONTRAST ONE (10:48)
[2017-06-27 11:05] VITALS: BP 145/83; PULSE 85; RESP 16; O2SAT 100
--- NOTE | 2017-06-27 11:06 | RADRPT ---
EXAM DATE/TIME: 06/27/2017 10:42 [facility] COMPARISON: No previous studies available for comparison. INDICATIONS : Mid upper abdominal pain with nausea and vomiting since last night. IV CONTRAST: 95 cc Omnipaque 350 (iohexol) IV ORAL CONTRAST: No oral contrast ingested. RADIATION DOSE: 24.66 CTDIvol (mGy) MEDICAL HISTORY : Hypertension. Gastroesophageal reflux disease. Diverticulitis. SURGICAL HISTORY : Hernia repair. ENCOUNTER: Initial ACUITY: 2 days PAIN SCALE: 7/10 LOCATION: upper quadrant TECHNIQUE: Volumetric scanning of the abdomen and pelvis was performed. Using automated exposure control and ad justment of the mA and/or kV according to patient size, radiation dose was kept as low as reasonably achievable to obtain optimal diagnostic quality images. DICOM format image data is available electro nically for review and comparison. FINDINGS: LOWER LUNGS: Minimal bibasilar opacities at the bases likely reflect atelectasis. LIVER: Homogeneous density without lesion. There is no dilation of the biliary tree. No calcified gallston es. SPLEEN: Spleen is enlarged measuring up to 14.9 cm. PANCREAS: Within normal limits. KIDNEYS: Normal in size and shape. There is no mass, stone or hydronephrosis. ADRENAL GLANDS: Within normal limits. VASCULAR: There is no aortic aneurysm. BOWEL/MESENTERY: Small hiatal hernia. Mild sigmoid and scattered colonic diverticulosis without significant inflammato ry change. Appendix appears unremarkable. No evidence for bowel obstruction. No significant free flui d or drainable fluid collection in the abdomen. ABDOMINAL WALL: Within normal limits. RETROPERITONEUM: There is no lymphadenopathy. BLADDER: No wall thickening or mass. REPRODUCTIVE: Within normal limits. INGUINAL: Postsurgical features of bilateral inguinal hernia repair. MUSCULOSKELETAL: Within normal limits for patient age. CONCLUSION: 1. Mild splenomegaly. 2. Colonic diverticulosis without definitive evidence for diverticulitis. 3. Normal appendix. 4. Small hiatal hernia. 5. Postsurgical features of bilateral inguinal hernia repair. Aguilar Francois MD on June 27, 2017 at 10:57 Board Certified Radiologist. This report was verified electronically.
[2017-06-27] MEDS ORDERED: ZOFR4TAB3 SL (11:25)
[2017-06-27] MEDS ORDERED: TRAM50TA PO (11:25)
[2017-06-27] MEDS ORDERED: ONDANSETRON HCL 4 MG/2 ML VIAL IV PUSH ONE (11:30)
[2017-06-27] MEDS ORDERED: HYDROmorphone HCL PF 0.5 MG/0.5 ML SYRINGE IV PUSH ONE (11:30)
[2017-06-27] MEDS ORDERED: SODIUM CHLORID 0.9% 500 ML INJ 500 ML IV ONE (11:30)
[2017-06-27 12:22] VITALS: BP 134/93
== END 2017-06-27 12:25 | disposition home or self-care (01) ==
LOC: PHED 08:31
DX: R11.10 Vomiting, unspecified (principal); I10 Essential (primary) hypertension; F32.9 Major depressive disorder, single episode, unspecified; K21.9 Gastro-esophageal reflux disease without esophagitis
CPT/HCPCS: 74177; 80053; 83690; 85025; 96361; 96374; 96375; 96376; 99284; J1170; J2405; J7030; J7040; Q9967

== ENCOUNTER 2017-07-07 07:47 | Emergency (ER) | payer OTHER ==
[~2017-07-07] VITALS: Ht 182.9 cm; Wt 145.0 kg
[~2017-07-07 07:47] MED LIST changes: -CYCL10TA PO; +ESCI20TA PO; -PRED20 PO; +PROT40TA PO; +ZOFR4TAB3 SL
[2017-07-07] MEDS ORDERED: IOHEXOL 350 MG/ML 10 ML VIAL (for RAD DIAG) IVCONTRAST ONE ×2 (07:48)
[2017-07-07 07:49] VITALS: BP 114/82; PULSE 102; RESP 16; TEMP 97.2; O2SAT 99
[2017-07-07 07:59] VITALS: BP 150/93; PULSE 95; RESP 18; O2SAT 98
[2017-07-07] MEDS ORDERED: SODIUM CHLOR 0.9% 1000 ML INJ 1,000 ML IV SCH (08:10)
[2017-07-07] MEDS ORDERED: FAMOTIDINE 20 MG/2 ML VIAL IV PUSH ONE (08:15)
[2017-07-07] MEDS ORDERED: SODIUM CHLORIDE 0.9% FLUSH 10 ML FLUSH IV FLUSH PRN (08:15)
[2017-07-07] MEDS ORDERED: ONDANSETRON HCL 4 MG/2 ML VIAL IVP ONE (08:15)
--- NOTE | 2017-07-07 08:21 | PD ---
HPI Chief Complaint: GI Complaint Time Seen by Provider: 08:10 Travel History International Travel<30 days: No Contact w/Intl Traveler<30days: No Traveled to known affect area: No History of Present Illness HPI 36-year-old male patient with history of diverticulitis, recently been having problems with nausea and vomiting, being evaluated by his physician for celiac disease among other things, had seen his physician yesterday, was here last week for nausea and vomiting, has seen GI Dr. Monte in the past as well, here because he is having nausea, vomiting, and one episode of diarrhea yesterday. He has left upper quadrant and epigastric abdominal pains which are 7 out of 10 , better with some pressure on the abdomen. He denies any fevers or any other issues. He states is very similar to the episode last week. Modifying Factors: None Associated Signs & Symptoms: Nausea, vomiting, diarrhea, upper abdominal pain Risk Factors: Similar episode last week PFSH Past Medical History Asthma: Yes Blood Disorders: No Depression: Yes Heart Rhythm Problems: No Cancer: No Cardiac Catheterization: No Cardiovascular Problems: Yes (HTN) High Cholesterol: No Chest Pain: No Congestive Heart Failure: No COPD: No Diabetes: No Diminished Hearing: No Endocrine: No Gastrointestinal Disorders: Yes (GERD) GERD: Yes Genitourinary: No Hepatitis: No Hiatal Hernia: Yes Heparin Induced Thrombocytopen: No Hypertension: Yes Immune Disorder: No Implanted Vascular Access Dvce: Yes Musculoskeletal: No Neurologic: No Psychiatric: No Reproductive: No Respiratory: Yes (ASTHMA) Immunizations Current: Yes Sleep Apnea: No Tetanus Vaccination: Unknown Influenza Vaccination: Yes Past Surgical History Abdominal Surgery: Yes (hernia x3) Body Medical Devices: UMBILICAL REPAIR-MESH Cardiac Surgery: No Coronary Artery Bypass Graft: No Ear Surgery: No Eye Surgery: No Genitourinary Surgery: Yes (VASECTOMY) Gynecologic Surgery: No Neurologic Surgery: No Thoracic Surgery: No Other Surgery: Yes (HERNIA REPAIT , VASECTOMY) Social History Alcohol Use: Yes (OCC) Tobacco Use: No Substance Use: No Allergies-Medications (Allergen,Severity, Reaction): Coded Allergies: No Known Allergies (Verified Adverse Reaction, Unknown, 07/07/17) Reported Meds & Prescriptions Reported Meds & Active Scripts Active Reported Escitalopram (Escitalopram Oxalate) 20 Mg Tab 20 Mg PO DAILY Protonix (Pantoprazole Sodium) 40 Mg Tab 40 Mg PO DAILY Review of Systems Except as stated in HPI: all other systems reviewed are Neg Physical Exam Narrative GENERAL: Well-developed middle-age male patient currently in mild distress. Awake and oriented 3. SKIN: Focused skin assessment warm/dry. HEAD: Atraumatic. Normocephalic. EYES: Pupils equal and round. No scleral icterus. No injection or drainage. ENT: No nasal bleeding or discharge. Mucous membranes pink and moist. NECK: Trachea midline. No JVD. Supple. CARDIOVASCULAR: Regular rate and rhythm. No murmur appreciated. RESPIRATORY: No accessory muscle use. Clear to auscultation. Breath sounds equal bilaterally. GASTROINTESTINAL: Abdomen soft, mild epigastric tenderness without guarding or rebound, nondistended. Hepatic and splenic margins not palpable. MUSCULOSKELETAL: No obvious deformities. No clubbing. No cyanosis. No edema. NEUROLOGICAL: Awake and alert. No obvious cranial nerve deficits. Motor grossly within normal limits. Normal speech. PSYCHIATRIC: Appropriate mood and affect; insight and judgment normal. Data Data Last Documented VS Vital Signs Date Time Temp Pulse Resp B/P (MAP) Pulse Ox O2 Delivery O2 Flow Rate FiO2 07/07/17 09:20 97.8 74 17 149/83 (105) 99 07/07/17 08:25 Room Air Orders Orders Complete Blood Count With Diff (07/07/17 08:10) Comprehensive Metabolic Panel (07/07/17 08:10) Lipase (07/07/17 08:10) Urinalysis - C+S If Indicated (07/07/17 08:10) Iv Access Insert/Monitor (07/07/17 08:10) Ecg Monitoring (07/07/17 08:10) Oximetry (07/07/17 08:10) Ondansetron Inj (Zofran Inj) (07/07/17 08:15) Sodium Chlor 0.9% 1000 Ml Inj (Ns 1000 M (07/07/17 08:10) Sodium Chloride 0.9% Flush (Ns Flush) (07/07/17 08:15) Famotidine Inj (Pepcid Inj) (07/07/17 08:15) Ct Abd/Pel W Iv Contrast(Rout) (07/07/17 09:15) Iohexol 350 Inj (Omnipaque 350 Inj) (07/07/17 07:48) Ed Discharge Order (07/07/17 11:29) Labs Laboratory Tests Test 07/07/17 07:15 07/07/17 10:50 White Blood Count 12.5 TH/MM3 Red Blood Count 6.11 MIL/MM3 Hemoglobin 16.2 GM/DL Hematocrit 48.0 % Mean Corpuscular Volume 78.5 FL Mean Corpuscular Hemoglobin 26.5 PG Mean Corpuscular Hemoglobin Concent 33.8 % Red Cell Distribution Width 13.6 % Platelet Count 282 TH/MM3 Mean Platelet Volume 8.2 FL Neutrophils (%) (Auto) 61.8 % Lymphocytes (%) (Auto) 27.1 % Monocytes (%) (Auto) 6.5 % Eosinophils (%) (Auto) 4.2 % Basophils (%) (Auto) 0.4 % Neutrophils # (Auto) 7.7 TH/MM3 Lymphocytes # (Auto) 3.4 TH/MM3 Monocytes # (Auto) 0.8 TH/MM3 Eosinophils # (Auto) 0.5 TH/MM3 Basophils # (Auto) 0.1 TH/MM3 CBC Comment DIFF FINAL Differential Comment Blood Urea Nitrogen 17 MG/DL Creatinine 1.30 MG/DL Random Glucose 80 MG/DL Total Protein 7.7 GM/DL Albumin 3.8 GM/DL Calcium Level 8.8 MG/DL Alkaline Phosphatase 77 U/L Aspartate Amino Transf (AST/SGOT) 25 U/L Alanine Aminotransferase (ALT/SGPT) 32 U/L Total Bilirubin 0.8 MG/DL Sodium Level 138 MEQ/L Potassium Level 4.3 MEQ/L Chloride Level 103 MEQ/L Carbon Dioxide Level 25.7 MEQ/L Anion Gap 9 MEQ/L Estimat Glomerular Filtration Rate 62 ML/MIN Lipase 164 U/L Urine Color YELLOW Urine Turbidity CLEAR Urine pH 6.0 Urine Specific Roberts 1.042 Urine Protein NEG mg/dL Urine Glucose (UA) NEG mg/dL Urine Ketones NEG mg/dL Urine Occult Blood NEG Urine Nitrite NEG Urine Bilirubin NEG Urine Urobilinogen 0.2 MG/DL Urine Leukocyte Esterase NEG Urine RBC LESS THAN 1 /hpf Urine WBC LESS THAN 1 /hpf Microscopic Urinalysis Comment CULT NOT INDICATED MDM Medical Decision Making Medical Screen Exam Complete: Yes Emergency Medical Condition: Yes Medical Record Reviewed: Yes Interpretation(s) Laboratory Tests Test 07/07/17 07:15 07/07/17 10:50 White Blood Count 12.5 TH/MM3 (4.0-11.0) Red Blood Count 6.11 MIL/MM3 (4.50-5.90) Mean Corpuscular Volume 78.5 FL (80.0-100.0) Mean Corpuscular Hemoglobin 26.5 PG (27.0-34.0) Eosinophils (%) (Auto) 4.2 % (0.0-4.0) Eosinophils # (Auto) 0.5 TH/MM3 (0-0.4) Estimat Glomerular Filtration Rate 62 ML/MIN (>89) Urine Specific Roberts 1.042 (1.002-1.035) Last 24 hours Impressions Abdomen/Pelvis CT 07/07/17 0915 Signed Impressions: Service Date/Time: Friday, July 07, 2017 09:34 - CONCLUSION: New minimal infiltrate right base that could be inflammatory Diverticulosis coli without diverticulitis Mild splenomegaly stable. Elvis Sánchez MD FACR Differential Diagnosis Gastritis versus gastroenteritis versus gastroesophageal reflux versus pancreatitis versus dehydration versus electrolyte abnormalities Narrative Course CT the abdomen was unremarkable for any signs of acute processes. There is a questionable early inflammatory process in the right lung although pulmonary exam is fairly unremarkable and patient symptoms are not consistent with underlying pulmonary processes currently. Lab work did show some mild leukocytosis but was otherwise negative for any significant dehydration, metabolic issues, or UTI. At this point, patient had been given IV fluids, Zofran, and Pepcid in the ER. He did not have further vomiting episodes in the ER. Vital signs are stable. My plan would be to release him with follow-up to GI doctor and primary care doctor who is already following patient for this issue. Return for any worsening in symptoms as necessary. The plan has been discussed with him and he states understanding. Diagnosis Primary Impression: Nausea and vomiting Med/Other Pt SpecificInfo: Prescription(s) given Scripts Dicyclomine (Bentyl) 10 Mg Cap 10 MG PO TID Y for Bowel Management, #12 CAP 0 Refills Prov: Poli Oneill MD 07/07/17 Ondansetron Odt (Zofran Odt) 4 Mg Tab 4 MG SL Q6HR Y for Nausea/Vomiting, #10 TAB 0 Refills Prov: Poli Oneill MD 07/07/17 Disposition: 01 DISCHARGE HOME Condition: Stable Poli Oneill MD July 07, 2017 08:21
[2017-07-07 08:25] VITALS: RESP 16; O2SAT 98
[2017-07-07 08:41] LABS: AUTOMATED NEUTROPHIL # 7.7 TH/MM3 (1.8-7.7); BASOPHIL # 0.1 TH/MM3 (0-0.2); BASOPHIL % 0.4 % (0.0-2.0); EOSINOPHIL # 0.5 TH/MM3 (0-0.4); EOSINOPHIL % 4.2 % (0.0-4.0); HEMOGLOBIN 16.2 GM/DL (13.0-17.0); LYMPH % 27.1 % (9.0-44.0); LYMPHOCYTE # 3.4 TH/MM3 (1.0-4.8); MEAN CELL VOLUME 78.5 FL (80.0-100.0); MEAN CORPUSCULAR HEMOGLOBIN 26.5 PG (27.0-34.0); MEAN CORPUSCULAR HGB CONC 33.8 % (32.0-36.0); MEAN PLATELET VOLUME 8.2 FL (7.0-11.0); MONO % 6.5 % (0.0-8.0); MONOCYTE # 0.8 TH/MM3 (0-0.9); NEUT % 61.8 % (16.0-70.0); PLATELET COUNT 282 TH/MM3 (150-450); RED BLOOD COUNT 6.11 MIL/MM3 (4.50-5.90); RED CELL DISTRIBUTION WIDTH 13.6 % (11.6-17.2); WHITE BLOOD COUNT 12.5 TH/MM3 (4.0-11.0)
[2017-07-07 09:01] LABS: ALKALINE PHOSPHATASE 77 U/L (45-117); TOTAL BILIRUBIN ADULT 0.8 MG/DL (0.2-1.0); TOTAL PROTEIN 7.7 GM/DL (6.4-8.2)
[2017-07-07 09:12] LABS: ALBUMIN 3.8 GM/DL (3.4-5.0); ALT (GPT) 32 U/L (12-78); AST (GOT) 25 U/L (15-37); BICARBONATE 25.7 MEQ/L (21.0-32.0); BLOOD UREA NITROGEN 17 MG/DL (7-18); CALCIUM 8.8 MG/DL (8.5-10.1); CHLORIDE 103 MEQ/L (98-107); GLOMERULAR FILTRATION RATE 62 ML/MIN (>89); GLUCOSE,RANDOM 80 MG/DL (74-106); SODIUM (NA) 138 MEQ/L (136-145)
[2017-07-07 09:20] VITALS: BP 149/83; PULSE 74; RESP 17; TEMP 97.8; O2SAT 99
--- NOTE | 2017-07-07 09:55 | RADRPT ---
EXAM DATE/TIME: 07/07/2017 09:34 [facility] COMPARISON: CT ABDOMEN & PELVIS W CONTRAST, June 27, 2017, 10:42. INDICATIONS : Lower abdominal pain IV CONTRAST: 72 cc Omnipaque 350 (iohexol) IV ORAL CONTRAST: No oral contrast ingested. RADIATION DOSE: 27.82 CTDIvol (mGy) MEDICAL HISTORY : Hypertension. Gastroesophageal reflux disease. SURGICAL HISTORY : None. ENCOUNTER: Initial ACUITY: 1 day PAIN SCALE: 6/10 LOCATION: lower quadrant TECHNIQUE: Volumetric scanning of the abdomen and pelvis was performed. Using automated exposure control and ad justment of the mA and/or kV according to patient size, radiation dose was kept as low as reasonably achievable to obtain optimal diagnostic quality images. DICOM format image data is available electro nically for review and comparison. FINDINGS: New minimal parenchymal infiltrate right base that could be early inflammatory process. The liver and gallbladder are unremarkable Mild splenomegaly Spleen and adrenal glands appear normal Symmetrical renal function without mass or stone No retroperitoneal adenopathy The cecum and colon appear unremarkable The pelvis there is scattered diverticuli without inflammatory changes. Previous hernia repair is no radha. Bladder prostate and seminal vesicles unremarkable Review of bone windows reveals mild degenerative changes lower lumbar spine. CONCLUSION: New minimal infiltrate right base that could be inflammatory Diverticulosis coli without diverticulitis Mild splenomegaly stable. Elvis Sánchez MD FACR on July 07, 2017 at 9:50 Board Certified Radiologist. This report was verified electronically.
[2017-07-07 11:03] LABS: BILIRUBIN, URINE NEG (NEG); BLOOD, URINE NEG (NEG); GLUCOSE,URINE NEG (NEG); KETONE, URINE NEG (NEG); NITRITE,URINE NEG (NEG); URINE COLOR YELLOW (YELLW/STRAW); URINE LEUKOCYTE ESTERASE NEG (NEG)
[2017-07-07] MEDS ORDERED: ZOFR4TAB3 SL (11:32)
[2017-07-07] MEDS ORDERED: DICY10 PO (11:32)
[2017-07-07 11:46] VITALS: BP 146/81; TEMP 97.8
== END 2017-07-07 11:47 | disposition home or self-care (01) ==
LOC: NEPC 07:47
DX: K57.90 Diverticulosis of intestine, part unspecified, without perforation or abscess without bleeding (principal); D72.829 Elevated white blood cell count, unspecified; R16.1 Splenomegaly, not elsewhere classified; J45.909 Unspecified asthma, uncomplicated; I10 Essential (primary) hypertension; K21.9 Gastro-esophageal reflux disease without esophagitis; F32.9 Major depressive disorder, single episode, unspecified; Z79.899 Other long term (current) drug therapy
CPT/HCPCS: 74177; 80053; 81001; 83690; 85025; 96361; 96374; 96375; 99284; J2405; J7030; Q9967